=== PATIENT | female | born 1965 | race Caucasian/White ===

== ENCOUNTER 2019-10-01 22:39 | Emergency (ER) | payer OTHER ==
[2019-10-01 22:47] VITALS: BP 0/0
--- NOTE | 2019-10-01 23:31 | ED ---
Lower Extremity - HPI Summary HPI Summary: Patient complains of left foot pain status post mechanical fall tonight. Denies any other pain, injury or symptoms. Patient is ambulatory with pain. - History of Current Complaint Chief Complaint: EDExtremityLower Stated Complaint: LT FOOT INJURY PER PT Time Seen by Provider: 10/01/19 23:28 Hx Obtained From: Patient Mechanism Of Injury: Fall From A Standing Position Onset of Pain: Immediate Onset/Duration: Minutes Severity Initially: Moderate Severity Currently: Moderate Pain Intensity: 5 Pain Scale Used: 0-10 Numeric Timing: Constant Location: Is Discrete @ Character Of Pain: Dull, Aching, Throbbing Associated Signs And Symptoms: Positive: Bruising Aggravating Factor(s): Standing, Ambulation Alleviating Factor(s): Rest, Elevation Able to Bear Weight: Yes - Allergies/Home Medications Allergies/Adverse Reactions: Allergies Allergy/AdvReac Type Severity Reaction Status Date / Time No Known Allergies Allergy Verified 10/01/19 22:42 PMH/Surg Hx/FS Hx/Imm Hx Endocrine/Hematology History: Reports: Hx Diabetes Denies: Hx Anticoagulant Therapy, Hx Thyroid Disease Cardiovascular History: Reports: Hx Hypertension - SITUATIONAL, Other Cardiovascular Problems/Disorders - ABLATION, PVC'S, PER PT. Denies: Hx Pacemaker/ICD Respiratory History: Denies: Hx Asthma, Hx Chronic Obstructive Pulmonary Disease (COPD) GI History: Denies: Hx Ulcer History: Denies: Hx Dialysis, Hx Renal Disease Sensory History: Denies: Hx Eye Prosthesis Opthamlomology History: Denies: Hx Legally Blind EENT History: Denies: Hx Deafness Neurological History: Denies: Hx Dementia, Hx Seizures Psychiatric History: Denies: Hx Substance Abuse - Cancer History Cancer Type, Location and Year: UTERINE/cervical. HYSTERECTOMY 2003 Hx Chemotherapy: No Hx Radiation Therapy: No - Surgical History Surgery Procedure, Year, and Place: BIOPSY ON RIGHT BREAST. HYSTERECTOMY 2003. 1983. T&AEAR TUBES. CARDIAC ABLATION 1990 Infectious Disease History: No Infectious Disease History: Denies: Hx Clostridium Difficile, Hx Hepatitis, Hx Human Immunodeficiency Virus (HIV), Hx Shingles, Hx Tuberculosis, Traveled Outside the [place] in Last 30 Days - Family History Known Family History: Positive: Non-Contributory - Social History Alcohol Use: Rare Substance Use Type: Reports: None Hx Tobacco Use: Yes Smoking Status (MU): Former Smoker Review of Systems Constitutional: Negative Eyes: Negative ENT: Negative Cardiovascular: Negative Respiratory: Negative Gastrointestinal: Negative Genitourinary: Negative Musculoskeletal: Other Skin: Negative Neurological: Negative Psychological: Normal All Other Systems Reviewed And Are Negative: Yes Physical Exam - Summary Physical Exam Summary: Tenderness along the dorsal aspect of foot at base of first and second digits. Small contusion there. Patient has active flexion and extension of toes. PMS intact distally. No pain with movement of ankle. No obvious deformity, erythema. Triage Information Reviewed: Yes Vital Signs On Initial Exam: Initial Vitals Temp Pulse Resp BP Pulse Ox 97.7 F 82 15 0/0 97 10/01/19 22:41 10/01/19 22:41 10/01/19 22:41 10/01/19 22:41 10/01/19 22:41 Vital Signs Reviewed: Yes Appearance: Positive: Well-Appearing Skin: Positive: Warm Head/Face: Positive: Normal Head/Face Inspection Eyes: Positive: Normal Neck: Positive: Supple Respiratory/Lung Sounds: Positive: Clear to Auscultation Cardiovascular: Positive: Normal Abdomen Description: Positive: Nontender Musculoskeletal: Positive: Normal Neurological: Positive: Normal Psychiatric: Positive: Normal AVPU Assessment: Alert - [place] Coma Scale Best Eye Response: 4 - Spontaneous Best Motor Response: 6 - Obeys Commands Best Verbal Response: 5 - Oriented Coma Scale Total: 15 Procedures - Sedation Patient Received Moderate/Deep Sedation with Procedure: No Diagnostics - Vital Signs Vital Signs Temp Pulse Resp BP Pulse Ox 10/01/19 22:41 97.7 F 82 15 0/0 97 - Laboratory Lab Statement: Any lab studies that have been ordered have been reviewed, and results considered in the medical decision making process. Lower Extremity Course/Dx - Course Course Of Treatment: Patient complains of left foot pain status post mechanical fall tonight. Denies any other pain, injury or symptoms. Patient is ambulatory with pain. Vital signs within normal limits. X-ray left foot negative for fracture. Patient placed in a walking boot by this provider. - Diagnoses Provider Diagnoses: Injury of foot, left Discharge ED - Sign-Out/Discharge Documenting (check all that apply): Patient Departure - Discharge Plan Condition: Stable Disposition: HOME Patient Education Materials: Foot Sprain (ED) Referrals: Sissy Rodriguez NP [Primary Care Provider] - Additional Instructions: Ice for 15 minutes at a time. Alternate ibuprofen 600 mg with Tylenol 650 mg every 3 hours as needed for pain. Weightbearing as tolerated. Follow-up with orthopedics Dr. Patrick if symptoms do not improve within a week. - Billing Disposition and Condition Condition: STABLE Disposition: Home
== END 2019-10-02 00:14 | disposition home or self-care (01) ==
LOC: ED 22:39
DX: S99.922A Unspecified injury of left foot, initial encounter (principal); W18.30XA Fall on same level, unspecified, initial encounter; Y92.9 Unspecified place or not applicable; E11.9 Type 2 diabetes mellitus without complications; I10 Essential (primary) hypertension; Z87.891 Personal history of nicotine dependence
CPT/HCPCS: 99282

== ENCOUNTER 2019-10-03 15:13 | Emergency (ER) | payer OTHER ==
--- NOTE | 2019-10-03 17:33 | UC ---
Lower Extremity/Ankle HPI - HPI Summary HPI Summary: 53 year old female presents after fall on 10/01- was seen in ED for increased pain. Was told no fracture, put into CAM boot and given post-op shoe. Patient reports after standing on foot in store all day today increased pain and swelling, concerned for fracture. Would like repeat evaluation. - History of Current Complaint Chief Complaint: UCLowerExtremity Stated Complaint: LEFT FOOT PAIN Time Seen by Provider: 10/03/19 16:37 Hx Obtained From: Patient ?: No Onset/Duration: Sudden Onset, Lasting Days - 10/01/2019 Severity Initially: Moderate Severity Currently: Moderate Pain Intensity: 5 Pain Scale Used: 0-10 Numeric Aggravating Factor(s): Standing, Ambulation Alleviating Factor(s): Rest Able to Bear Weight: No - Allergies/Home Medications Allergies/Adverse Reactions: Allergies Allergy/AdvReac Type Severity Reaction Status Date / Time No Known Allergies Allergy Verified 10/03/19 15:22 Home Medications: Home Medications Aspirin TAB* [Aspirin 325 MG TAB*] 325 mg PO EVERY OTHER DAY 10/03/19 [History Confirmed 10/03/19] Atorvastatin* [Lipitor*] 20 mg PO DAILY 10/03/19 [History Confirmed 10/03/19] PMH/Surg Hx/FS Hx/Imm Hx Previously Healthy: Yes Other History Of: Negative For: Anticoagulant Therapy - Surgical History Surgical History: Yes Surgery Procedure, Year, and Place: BIOPSY ON RIGHT BREAST. HYSTERECTOMY 2003. 1983. T&AEAR TUBES. CARDIAC ABLATION 1990 - Family History Known Family History: Positive: Non-Contributory - Social History Occupation: Employed Full-time - owns [employer] Alcohol Use: Rare Substance Use Type: None Smoking Status (MU): Former Smoker Length of Time of Smoking/Using Tobacco: 30 years When Did the Patient Quit Smoking/Using Tobacco: 2008 Review of Systems All Other Systems Reviewed And Are Negative: Yes Constitutional: Positive: Negative Musculoskeletal: Positive: Arthralgia, Decreased ROM, Edema, Myalgia Neurological: Positive: Negative Psychological: Positive: Negative Is Patient Immunocompromised?: No Physical Exam Triage Information Reviewed: Yes Appearance: Well-Appearing, No Pain Distress, Well-Nourished Vital Signs: Initial Vital Signs Temp 97.5 F 10/03/19 15:25 Pulse 87 10/03/19 15:25 Resp 18 10/03/19 15:25 BP 0/0 10/03/19 15:25 Pulse Ox 99 10/03/19 15:25 Vital Signs Reviewed: Yes Eyes: Positive: Conjunctiva Clear ENT: Positive: Hearing grossly normal Musculoskeletal: Positive: ROM Intact - Left ankle. + rom with flex/ extesion of L toes, diminished due to pain. decreased strength 1/5 due to pain, poor effort on patient part., Other: - TTP over MTP 2-4th on left foot with mild ttp over MTP 1st. + mild edema over 1st, moderate over 2-5. PT, DP pulses 2+. no TTO over ankle ligamnets, tendons. neg homans, neg TTP over knee, calf. Neurological: Positive: Alert, Muscle Tone Normal, Other: - SITLT at all toes L foot Psychological Exam: Normal Psychological: Positive: Normal Response To Family Skin: Positive: Other - left foot: intact, no open wounds, sores. + ecchymosis at MTP 2-4th with moderate edema noted. Lower Extremity Course/Dx - Course Course Of Treatment: attempted to pull blank script from [facility], called for [facility] help, however unable to do so, nurse was asked to override due to time constraints/ patient volume. - Differential Dx/Diagnosis Differential Diagnosis/HQI/PQRI: Osteomyelitis, Sprain, Strain, Tendonitis Provider Diagnosis: Sprain of foot, left Discharge ED - Sign-Out/Discharge Documenting (check all that apply): Patient Departure All imaging exams completed and their final reports reviewed: Yes - Discharge Plan Condition: Good Disposition: HOME Patient Education Materials: Sprain (ED) Referrals: Sissy Rodriguez NP [Primary Care Provider] - Josef Whitman MD [Medical Doctor] - Additional Instructions: X-ray negative for fracture, likely sprain - Keep foot elevated, iced as much as possible. - Ice as much as possible - CAM boot when ambulatory for 1-2 weeks, may progress to post-op shoe as tolerated - Follow up with orthopedics within 3-5 days if no improvement - Crutches for ambulation to decreased weight bearing. weight bearing as tolerated - Knee scooter script written - Billing Disposition and Condition Condition: GOOD Disposition: Home
[2019-10-03 18:24] VITALS: BP 0/0
== END 2019-10-03 17:50 | disposition home or self-care (01) ==
LOC: UCEAST 15:13
DX: S93.602A Unspecified sprain of left foot, initial encounter (principal); Z79.82 Long term (current) use of aspirin; Z87.891 Personal history of nicotine dependence; W19.XXXA Unspecified fall, initial encounter; Y92.9 Unspecified place or not applicable
CPT/HCPCS: 99211; G0463